=== PATIENT | female | born 1940 | race Caucasian/White ===

== ENCOUNTER 2018-08-30 22:28 | Emergency (ER) | payer MEDICARE ==
[2018-08-30 22:38] VITALS: BMI 25.4
[2018-08-30 22:56] VITALS: TEMP 97.9; O2SAT 100
--- NOTE | 2018-08-30 23:28 | ED PDOC ---
Arrival/HPI - General Chief Complaint: Palpitations Time Seen by Provider: 08/30/18 22:39 Historian: Patient - History of Present Illness Narrative History of Present Illness (Text): 08/30/18 23:30 A 78 year old female, whose past medical history includes hypertension, hyperlipidemia, asthma, presents to the emergency department complaining of anxiety and having a panic attack earlier today, describes the panic attack as her "heart is racing." Patient reports she took her Lexapro, which was just recently prescribed to her for her anxiety, took it today for the first time, however has had no improvements of her symptoms. Also, due to her anxiety, she worried her blood pressure was high so she took an extra dosage of her clonidine at 3pm. She also has a recent copy of her EKG and outpatient labs done last month, which include a normal EKG, normal CBC, CMP, TSH, HgbA1C, only elevated LDL. Patient denies any depression, SI/HI, chest pain, shortness of breath, headache, dizziness, N/V, back pain, or any other complaints at this time. PMD: Dr. Rich Past Medical History - Provider Review Nursing Documentation Reviewed: Yes Primary Care Provider: Arie Rich - Tetanus Immunization Tetanus Immunization: Up to Date - Cardiac Hx Cardiac Disorders: Yes Hx Hypertension: Yes - Pulmonary Hx Asthma: Yes - Integumentary Other/Comment: Hx of Rt neck cyst removal and Left breast cyst removal 20 years ago - Musculoskeletal/Rheumatological Hx Falls: No - Psychiatric Hx Depression: No Hx Emotional Abuse: No Hx Physical Abuse: No Hx Substance Use: No - Past Surgical History Past Surgical History: No Previous - Anesthesia Hx Anesthesia: Yes - Suicidal Assessment Feels Threatened In Home Enviroment: No Family/Social History - Physician Review Nursing Documentation Reviewed: Yes Family/Social History: No Known Family HX Smoking Status: Never Smoked Hx Alcohol Use: No Hx Substance Use: No Hx Substance Use Treatment: No Allergies/Home Meds Allergies/Adverse Reactions: Allergies acetaminophen [From Percocet] Allergy (Verified 08/30/18 22:39) URTICARIA amoxicillin Allergy (Verified 08/30/18 22:39) URTICARIA oxycodone [From Percocet] Allergy (Verified 08/30/18 22:39) URTICARIA Penicillins Allergy (Verified 08/30/18 22:39) URTICARIA Home Medications: Home Meds Medication Instructions Recorded Confirmed Amlodipine Besylate [Norvasc] 5 mg PO DAILY 10/26/12 10/26/12 Review of Systems - Physician Review All systems were reviewed & negative as marked: Yes - Review of Systems Respiratory: absent: SOB Cardiovascular: absent: Chest Pain Psychiatric: Anxiety. absent: Depression, Suicidal Ideation (and no homicidal ideation) Physical Exam Vital Signs Reviewed: Yes Vital Signs Temp Pulse Resp BP Pulse Ox 08/30/18 22:47 97.9 F 71 15 167/80 H 100 Temperature: Afebrile Blood Pressure: Hypertensive Pulse: Regular Respiratory Rate: Normal Appearance: Positive for: Well-Appearing, Non-Toxic, Comfortable Pain Distress: None Mental Status: Positive for: Alert and Oriented X 3 - Systems Exam Head: Present: Atraumatic, Normocephalic Pupils: Present: PERRL Extroacular Muscles: Present: EOMI Conjunctiva: Present: Normal Mouth: Present: Moist Mucous Membranes Neck: Present: Normal Range of Motion Respiratory/Chest: Present: Clear to Auscultation, Good Air Exchange. No: Respiratory Distress, Accessory Muscle Use Cardiovascular: Present: Regular Rate and Rhythm, Normal S1, S2. No: Murmurs Abdomen: No: Tenderness, Distention, Peritoneal Signs Back: Present: Normal Inspection Upper Extremity: Present: Normal Inspection. No: Cyanosis, Edema Lower Extremity: Present: Normal Inspection. No: Edema Neurological: Present: GCS=15, CN II-XII Intact, Speech Normal Skin: Present: Warm, Dry, Normal Color. No: Rashes Psychiatric: Present: Alert, Oriented x 3, Normal Insight, Normal Concentration Medical Decision Making ED Course and Treatment: 08/30/18 23:31 Impression: 78 year old female with anxiety, experienced a panic attack earlier today. No acute findings on physical exam. Plan: -- EKG -- Xanax -- Reassess and disposition Progress Notes: EKG : NSR at 73 bpm, +LAD, no acute ST changes. Patient reports feeling very anxious. Patient offered 0.5 mg of xanax, which she agreed with, states that she has taken xanax in the past. 08/31/18 00:30 On re-evaluation, patient is sleeping, but arouses easily. While sleeping the patient's HR is in the 40's, once awake her HR is in the 50's. She reports no chest pain, sob, dizziness at this time. She reports no h/o bradycardia in the past. Her previous medical records reviewed, her last admission to this hospital, the patient was initially seen with HR in the 70s, during her admission her HR was in 60s-50s. Case d/w Dr. Rich, he states that the patient can be d/c, he can see her in the office in the AM and he can schedule outpatient holter monitoring for the patient, which she will likely need. Patient notified of plan by her pmd, which she agrees with. - Medication Orders Current Medication Orders: Discontinued Medications Alprazolam (Xanax) 0.5 mg PO STAT STA; Protocol Stop: 08/30/18 23:18 Last Admin: 08/30/18 23:21 Dose: 0.5 mg - PA / [employer]IN[employer] / Resident Statement MD/DO has reviewed & agrees with the documentation as recorded. - Scribe Statement The provider has reviewed the documentation as recorded by the Letty Valadez Provider Scribe Attestation: All medical record entries made by the Letty were at my direction and personally dictated by me. I have reviewed the chart and agree that the record accurately reflects my personal performance of the history, physical exam, medical decision making, and the department course for this patient. I have also personally directed, reviewed, and agree with the discharge instructions and disposition. Disposition/Present on Arrival - Present on Arrival Any Indicators Present on Arrival: No History of DVT/PE: No History of Uncontrolled Diabetes: No Urinary Catheter: No History of Decub. Ulcer: No History Surgical Site Infection Following: None - Disposition Have Diagnosis and Disposition been Completed?: Yes Diagnosis: Panic attack, Bradycardia Disposition: HOME/ ROUTINE Disposition Time: 00:45 Patient Plan: Discharge Condition: STABLE Discharge Instructions (ExitCare): Bradycardia, Panic Disorder (DC) Additional Instructions: Thank you for letting us take care of you today. You were treated for panic attack, bradycardia. The emergency medical care you received today was directed at your acute symptoms. Return to the Emergency Department if your symptoms worsen, do not improve, or if you have any other problems. Please see your doctor tomorrow for re-evaluation and follow up. Bring any paperwork you were given at discharge with you along with any medications you are taking to your follow up visit. Our treatment cannot replace ongoing medical care by a primary care provider (PCP) outside of the emergency department. Thank you for allowing the [facility] team to be part of your care today. Forms: [facility] ([place])
[2018-08-31 01:14] VITALS: BP 158/62; PULSE 48; RESP 16
--- NOTE | 2018-08-31 09:38 | CARD ---
APPROVED REPORT Date of service: 08/30/2018 EKG Measurement Heart [id number] ID [id number] <Conclusion> Normal sinus rhythm Left axis deviation Nonspecific T wave abnormality Abnormal ECG
== END 2018-08-31 01:13 | disposition home or self-care (01) ==
LOC: ED 22:28
DX: F41.0 Panic disorder [episodic paroxysmal anxiety] (principal); R00.1 Bradycardia, unspecified; I10 Essential (primary) hypertension; E78.5 Hyperlipidemia, unspecified

== ENCOUNTER 2018-09-03 09:04 | Outpatient (CLI) | payer MEDICARE | END 2018-09-03 09:05 | disposition home or self-care (01) | LOC: CARDIO 09:05 ==

== ENCOUNTER 2018-09-14 15:14 | Outpatient (CLI) | payer MEDICARE | END 2018-09-14 15:15 | disposition home or self-care (01) | LOC: RAD 15:15 ==